=== PATIENT | male | born 1945 | race Caucasian/White ===

== ENCOUNTER 2016-08-18 10:20 | Outpatient (CLI) | payer MEDICARE, BC ==
[~2016-08-18] VITALS: Ht 180.3 cm; Wt 127.3 kg
--- NOTE | ~2016-08-18 | TEE ---
PATIENT:SHAMAR JOLLEY MEDICAL RECORD: [id number] LOCATION:D.[facility] AGE OF PATIENT: 70 ADMISSION DATE: 08/18/16 SEX: M REFERRING PHYSICIAN: INTERPRETING PHYSICIAN: TRISTEN HOLDER MD TRANSESOPHAGEAL ECHOCARDIOGRAM MONA CHARGE Y INDICATIONS: AFIB, ASSESS FOR CLOTS PREMEDICATIONS: PATIENT'S RESPONSE PROCEDURE DOPPLER MEASUREMENTS: LVIT LA PA RA LVOT RVOT Asc. Ao AV Gradient Peak AV Mean AV Area MV Gradient Peak MV Mean MV Area INTERPRETATION: Doppler: 2-D: NO CLOT, DIALTED LA , GOOD LV FUNCTION COLOR FLOW DOPPLER MILD MR NORMAL SALINE STUDY: MISCELLANOUS: DIAGNOSIS: PLAN: Waste Salvager:10 Dr. Montez Business Manager: Humberto HASTINGS COMMENTS: TRANSESOPHAGEAL ECHOCARDIOGRAM PROCEDURE: After general sedation via TIVA anesthesia, a transesophageal omniplane probe was placed to the central esophagus/proximal stomach without difficulty. FINDINGS: Left ventricular hypertrophy was present. Left ventricular internal dimensions are normal. Wall motion is normal. Ejection fraction is greater than or equal to 55%. The left atrium appears dilated. The left atrial appendage is well-visualized with good contractility via Doppler interrogation and no evidence of TRANSESOPHAGEAL ECHOCARDIOGRAM REPORT [id number] SHAMAR JOLLEY thrombus. The mitral valve appears normal without prolapse and mild mitral regurgitation. Right-sided chambers appear grossly normal with mild tricuspid regurgitation. The aortic valve was well-visualized. This is trileaflet without evidence of stenosis. At the end of the procedure, the transesophageal omniplane probe was turned posteriorly, and this showed minimal atherosclerotic debris in the descending aorta. TRISTEN HOLDER MD CC: [id number] DICTATION DATE: 08/18/16 1200 MULTIMEDIA PROGRAMMER: DM 08/19/16 1036 DEP CLI 08/18/16 [facility] [address] [place] [address]
--- NOTE | ~2016-08-18 | HEMODYNAMI ---
PATIENT:SHAMAR JOLLEY MEDICAL RECORD: [id number] : 43 LOCATION:D.[facility] ADMISSION DATE: 08/18/16 Generatedon:08/18/201614:27 Patient name: SHAMAR JOLLEY Patient #: [id number] SSN: B: 1945 Date of study: 08/18/2016 Page: Of Hemodynamic Procedure Report Patient Data Patient Demographics Procedure consent was obtained First Name: SHAMAR Gender: Male Last Name: SAMREEN : 1945 Patient #: [id number] Age: 70 year(s) Race: Unknown Additional ID: [id number] Contact details [address]: [address] [place] [address] State: [place] City: [place] Zip code: [address] Admission Admission Data Admission Date: 08/18/2016 Admission Time: 10:20 Procedure Procedure Types Cath Procedure Diagnostic Procedure Cardioversion MONA Procedure Description Procedure Date Procedure Date: 08/18/2016 Procedure Start Time: 14:01 Procedure End Time: 14:27 Procedure Staff Name Function Gigi Montez MD Performing Physician Florence Freeman RN Nurse Andreas Arnold RT Monitor Vickey Barba RT Monitor Addi Mo RN King Maker Procedure Data Cath Procedure Fluoroscopy Diagnostic fluoroscopy Total fluoroscopy Time: 0 time: 0 min min Diagnostic fluoroscopy Total fluoroscopy dose: 0 dose: 0 mGy mGy Contrast Material Contrast Material Type Amount (ml) Isovue 300 0 Procedure Complications No complications Procedure Medications Medication Administration Route Dosage Oxygen NC 2 l/min Hurricaine [place] P.O. Sprays Refer to Anesthesia Notes for Sedation Medications Pepcid I.V. 20 mg Hemodynamics Rest Pre Cath Intra NCS Post Cath Vital Signs Time Heart Resp SPO2 etCO2 [id number] Respiration NIBP (mmHg) Rhythm Alcon n Sedation Rate (ipm) (%) (mmHg) (mmHg) (CO2) (ipm) Status Leve l (bpm) 13:54:31 63 19 99 0 0 Measuring A-Fib 0 ( 11) 10(A) , No pain 13:54:39 66 15 99 0 0 Out of range A-Fib 0 ( 11) 10(A) , No pain 13:56:03 107 22 99 0 0 143/118(138) A-Fib 0 ( 11) 10(A) , No pain 14:01:02 68 21 98 21.8 3.7 31 Measuring A-Fib 0 ( 11) 10(A) , No pain 14:01:18 60 19 100 25.5 6 25 176/84(114) A-Fib 0 ( 11) 10(A) , No pain 14:05:37 57 23 98 2.2 2.2 126/69(92) A-Fib 0 ( 11) 6(A) , No pain 14:10:35 60 18 98 9.7 0 Measuring SB 0 ( 11) 6(A) , No pain 14:10:52 58 23 95 24.1 1.5 25 Disturbed SB 0 ( 11) 6(A) , No pain 14:12:36 57 23 98 18.8 4.5 20 103/55(71) SB 0 ( 11) 6(A) , No pain 14:16:48 56 19 97 15 0 97/49(73) SB 0 ( 11) 7(A) , No pain 14:20:56 59 26 96 9.7 0 104/59(73) SB 0 ( 11) 7(A) , No pain 14:25:55 59 15 100 0 0 Measuring SB 0 ( 11) 7(A) , No pain 14:25:59 59 19 99 0 0 124/69(88) SB 0 ( 11) 10(A) , No pain Medications Time Medication Route Dose Verified Delivered Reason Notes Eff ectiveness by by 13:48:21 Oxygen NC 2 Gigi Henriquez Per l/min St. Ubaldo Freeman RN physician 13:48:30 Hurricaine P.O. Sprays Gigi Yu Per [facility] physician MD HART 13:48:39 Pepcid I.V. 20 mg Gigi Henriquez Per administered [facility]. Ubaldo Freeman RN physician in 10ml MD YUE BATEMANP 14:00:35 Refer to Gigi Yu for Al Charisse at [facility] sedation bedside for Notes for MD HART sedation Sedation Medications Procedure Log Time Note 13:30:57 Addi Mo RN sent for patient. Start room use. 13:45:06 Time tracking: Regular hours 13:45:11 Plan of Care:Hemodynamics will remain stable., Cardiac rhythm will remain stable., Comfort level will be maintained., Respiratory function will remain adequate., Patient/ family verbilizes understanding of procedure., Procedure tolerated without complication., Recovers from procedure without complications.. 13:45:17 Patient arrived from Pre/Post Procedure Room to [facility] 1. Patient remains on bed/stretcher for procedure. 13:45:18 Warm blankets applied, and gaby hugger turned on for patient comfort. 13:45:19 Correct patient and procedure confirmed by team. 13:45:20 Signed procedure consent form obtained from patient. 13:45:20 ECG and BP/O2 sat monitors applied to patient. 13:45:42 [employer] Inspector present for MONA. 13:48:21 Oxygen 2 l/min NC was administered by Florence Freeman RN; Per physician; 13:48:30 Hurricaine [place] Sprays P.O. was administered by Gigi Montez MD; Per physician; 13:48:39 Pepcid 20 mg I.V. was administered by Florence Freeman RN; Per physician; administered in 10ml NS, SIVP 13:48:49 H&P Date Dictated: 08/05/2016 Within 30 days and on chart., H&P Addendum completed by physician on day of procedure. (MUST COMPLETE FOR ALL OUTPATIENTS). 13:48:50 Pre-procedure instructions explained to patient. 13:48:51 Pre-op teaching completed and patient verbalized understanding. 13:48:53 Family in waiting room. 13:48:54 Patient NPO since Midnight. 13:49:01 Is the patient allergic to Iodine/contrast media? No. 13:49:08 Patient diabetic? Yes. 13:49:09 If diabetic: On Metformin? No 13:49:11 Is patient on blood thinner?No 13:49:14 Previous problem with sedation/anesthesia? No ? 13:49:15 Snore? Yes 13:49:16 Sleep apnea? Yes 13:49:17 Deviated septum? No 13:49:18 Opens mouth fully? Yes 13:49:19 Sticks out tongue? Yes 13:49:20 Airway obstruction? No ? 13:49:24 Dentures? Yes IN 13:49:33 Patient pain scale 0/10 ?. 13:49:40 IV patent on arrival in left forearm with 0.9% NaCl at O. 13:49:42 Lab results completed and on chart. 13:49:46 Alarms reviewed by Nancy Dobbins 13:52:13 Al Charisse present and monitoring patient for TIVA. 13:52:26 Quick Combo opened to sterile field. 13:52:29 Quick combo pads placed on patients chest and back. 13:52:42 Vital chart was started 13:52:47 Rhythm: atrial flutter 13:52:49 Full Disclosure recording started 13:55:58 Procedure type changed to Cath procedure, Diagnostic procedure, Cardioversion, MONA 13:58:38 --------ALL STOP TIME OUT------ 13:58:39 Final Timeout: patient, procedure, and site verified with staff and physician. All members of the team are in agreement. 13:58:55 Physical assessment completed. ASA score P 2 - A patient with mild systemic disease as per Gigi Montez MD. 13:58:59 Sedation plan: IV Moderate Sedation Versed, Fentanyl 14:00:35 Refer to Anesthesia Notes for Sedation Medications was administered by Gigi Montez MD; for sedation; Reji Mcqueen at bedside for sedation 14:01:20 Procedure started. 14:01:26 MONA started. 14:07:45 MONA completed. 14:08:13 Defibrillator synced and charged to 200 Joules. 14:08:31 Shock delivered. 14:09:00 Patient cardioverted to sinus rhythm . 14:10:18 Procedure ended.(Physican Out) 14:11:07 Fluoroscopy time 00.00 minutes. 14:11:09 Fluoroscopy dose: 0 mGy 14:11: Flurop Dose total: 0 14:11:11 Contrast amount:Isovue 300 0ml. 14:11:17 Post-procedure physical assessment completed. ASA score P 2 - A patient with mild systemic disease as per Gigi Montez MD. 14:11:23 Post procedure rhythm: sinus rhythm 14::40 Post procedure instruction explained to patient.Patient verbalizes understanding. 14:11:40 Patient needs reinforcement of post procedure teaching. 14::54 Procedure and supply charges have been captured, reviewed, submitted and are correct. 14::58 Procedure Complication : No complications 14:26:54 Vital chart was stopped 14:26:55 See physician's report for complete and final results. 14:26:57 Report given to Pre/Post Procedure Room. 14:27:03 Patient transfered to Pre/Post Procedure Room with Stretcher. 14:27:06 Procedure ended. 14:27:06 Full Disclosure recording stopped 14:27:22 End room use (Document Last) Device Usage Item Manufacture Quantity Catalog Hospital Part Current Minimal Lot# / Name Number Charge Number [facility] [place]# Code [employer] [id number] Combo Signature Audit [place] Stage Time Signature Unsigned Intra-Procedure 08/18/2016 Andreas Arnold 2:27:54 PM RT(R) Signatures Monitor : Andreas Arnold RT Signature : Date : Time : Monitor : Vickey Barba RT Signature : Date : Time : [address] [address]
--- NOTE | ~2016-08-18 | OP ---
PATIENT NAME: SHAMAR JOLLEY MEDICAL RECORD: [id number] :43 LOCATION:D.[facility] ADMISSION DATE: SURGEON: TRISTEN HOLDER MD OPERATION DATE: 08/18/16 CARDIOVERSION NOTE PROCEDURE: After general sedation via TIVA anesthesia, a single synchronized shock was successful in restoring normal sinus rhythm from atrial fibrillation. IMPRESSION: Successful cardioversion from atrial fibrillation to normal sinus rhythm. COMPLICATIONS: None. TRISTEN HOLDER MD CC: [id number] DICTATION DATE: 08/18/16 1200 [employer]HALT PL[employer] OPERATOR: DM 08/19/16 1043 DEP CLI 08/18/16 [facility] [address] [place] [id number]
[2016-08-18] MEDS ORDERED: LIPITOR10 MG PO (11:10)
[2016-08-18] MEDS ORDERED: HUMALOG MI100 UNITS/ SC (11:12)
[2016-08-18] MEDS ORDERED: LANTUS SOL100 UNIT/1 SC (11:12)
[2016-08-18] MEDS ORDERED: GLIMEPIRIDE2 MG PO (11:13)
[2016-08-18] MEDS ORDERED: NORVASC10 MG PO (11:13)
[2016-08-18] MEDS ORDERED: BAYER CHEWABLE81 MG PO (11:13)
[2016-08-18] MEDS ORDERED: JANUMET 50-1,001 TAB PO ×2 (11:14→11:15)
[2016-08-18] MEDS ORDERED: HYZAAR 100-25 T1 TAB PO (11:14)
[2016-08-18] MEDS ORDERED: FEXOFENADINE H180 MG PO (11:14)
[2016-08-18] MEDS ORDERED: BETAPACE 80 MG80 MG PO (11:15)
[2016-08-18 11:18] VITALS: BP 140/76; Ht 180.3 cm; Wt 127.3 kg
[2016-08-18 11:18] LABS: BASOPHILS 0.4 % (0-2); EOSINOPHILS 3.1 % (0-7); HEMOGLOBIN 14.3 g/dL (13.5-17.5); IMMATURE GRANULOCYTES 0.6 % (0-5); LYMPHOCYTES 24.4 % (15-50); MCH 30.4 pg (26.0-34.0); MCV 89.2 fL (80.0-100.0); MEAN PLATELET VOLUME 11.3 fL (7.4-10.4); MONOCYTES 12.7 % (2-11); NEUTROPHILS 58.8 % (40-80); PLATELET COUNT 141 10x3/uL (130-400); RBC 4.71 10x6/uL (4.20-6.10); RDW 13.7 % (11.5-14.5)
[2016-08-18 11:46] LABS: INR 0.96 (0.85-1.17); PROTIME 12.6 SECONDS (11.6-15.0)
[2016-08-18 11:48] LABS: CALC OSMOLALITY 284 mosm/kg (275-300); CALCIUM 9.5 mg/dL (8.5-10.1); CARBON DIOXIDE 25.6 mmol/L (21.0-32.0); CHLORIDE - SERUM 103 mmol/L (98-107); GLUCOSE 234 mg/dL (74-106); POTASSIUM - SERUM 4.2 mmol/L (3.5-5.1); SODIUM 138 mmol/L (136-145); UREA NITROGEN 16 mg/dL (7-18); eGFR NON AFRICAN AMERICAN 78 mL/min (90-120)
--- NOTE | 2016-08-18 15:00 | NUR ---
NSR AT 63, DENIES NEEDS, REFUSES FOOD AT THIS TIME
--- NOTE | 2016-08-18 15:30 | NUR ---
NSR AT 69, DENIES PAIN OR NEEDS, AT SIDE.
--- NOTE | 2016-08-18 16:00 | NUR ---
IV D'C WITH CATH TIP INTACT, WRITTEN AND VERBAL INSTRUCTIONS GIVEN TO PT AND . D'C HOME
== END 2016-08-18 16:00 | disposition home or self-care (01) ==
LOC: D.CATH 10:20
PROVIDERS: Internal Medicine Cardiovascular Disease
DX: I48.91 Unspecified atrial fibrillation (principal); I25.10 Atherosclerotic heart disease of native coronary artery without angina pectoris; I10 Essential (primary) hypertension; E11.9 Type 2 diabetes mellitus without complications; Z95.1 Presence of aortocoronary bypass graft; Z01.812 Encounter for preprocedural laboratory examination